=== PATIENT | male | born 1950 | race Caucasian/White ===

== ENCOUNTER → 2017-03-29 10:55 | Outpatient (CLI) | payer BC | END | disposition home or self-care (01) | LOC: D.MRI 10:55 | DX: M54.5 Low back pain (principal) ==

== ENCOUNTER → 2018-10-26 13:33 | Outpatient (CLI) | payer BC | END | disposition home or self-care (01) | LOC: D.HCCARDIO 13:33 | DX: R06.09 Other forms of dyspnea (principal) ==